=== PATIENT | male | born 1965 | race Caucasian/White ===

== ENCOUNTER 2017-08-19 14:19 | Outpatient (CLI) | payer OTHER | END 2017-08-19 14:20 | disposition home or self-care (01) | LOC: SC 14:19 | PROVIDERS: ATTEND Nurse Practitioner Family | DX: G47.10 Hypersomnia, unspecified (principal); G47.9 Sleep disorder, unspecified; R06.81 Apnea, not elsewhere classified; G47.00 Insomnia, unspecified; R06.83 Snoring | CPT/HCPCS: 99203; 99212 ==

== ENCOUNTER 2017-09-19 20:30 | Outpatient (CLI) | payer OTHER | END 2017-09-19 20:31 | disposition home or self-care (01) | LOC: SC 20:30 | PROVIDERS: ATTEND Internal Medicine Pulmonary Disease | DX: G47.33 Obstructive sleep apnea (adult) (pediatric) (principal); G47.61 Periodic limb movement disorder | CPT/HCPCS: 95810 ==

== ENCOUNTER 2017-10-05 10:58 | Outpatient (CLI) | payer OTHER | END 2017-10-05 10:59 | disposition home or self-care (01) | LOC: SC 10:58 | PROVIDERS: ATTEND Internal Medicine Pulmonary Disease | DX: G47.33 Obstructive sleep apnea (adult) (pediatric) (principal) | CPT/HCPCS: 99212; 99213 ==

== ENCOUNTER 2017-11-16 20:14 | Outpatient (CLI) | payer OTHER | END 2017-11-16 20:15 | disposition home or self-care (01) | LOC: SC 20:14 | PROVIDERS: ATTEND Internal Medicine Pulmonary Disease | DX: G47.33 Obstructive sleep apnea (adult) (pediatric) (principal); G47.61 Periodic limb movement disorder | CPT/HCPCS: 95811 ==

== ENCOUNTER 2017-11-25 14:49 | Outpatient (CLI) | payer OTHER | END 2017-11-25 14:50 | disposition home or self-care (01) | LOC: SC 14:49 | PROVIDERS: ATTEND Nurse Practitioner Family | DX: G47.33 Obstructive sleep apnea (adult) (pediatric) (principal); G47.61 Periodic limb movement disorder | CPT/HCPCS: 99212; 99214 ==

== ENCOUNTER 2017-11-27 12:13 | Emergency (ER) | payer OTHER ==
[2017-11-27 12:26] VITALS: BP 124/98
--- NOTE | 2017-11-27 12:43 | ED Physician Documentation ---
PD HPI URI - Stated complaint Stated Complaint: L EAR PX - Chief complaint Chief Complaint: Heent - History obtained from History obtained from: Patient - History of Present Illness Timing - onset: How many days ago (1-2) Timing duration: Days Timing details: Gradual onset, Still present Associated symptoms: Ear pain (1-2 days), Nasal congestion (for couple of weeks) , Swollen nodes. No: Fever, Chills, Sore throat, Dry cough Contributing factors: No: Sick contact Similar symptoms before: Diagnosis (he has had ear infections in the past, typically 1-2 weeks after URI symptoms or allergies. He did have congestion and cough about 1 1/2 weeks ago, which has improved. Now the ear pain.) Recently seen: Not recently seen Review of Systems Constitutional: denies: Fever, Chills Ears: reports: Loss of hearing (diminished), Ear pain. denies: Tinnitus/ringing Nose: reports: Rhinorrhea / runny nose, Congestion (1 1/2 weeks ago, improved) Throat: denies: Sore throat Respiratory: denies: Cough GI: denies: Nausea, Vomiting, Diarrhea Skin: denies: Rash, Lesions PD PAST MEDICAL HISTORY - Past Medical History Past Medical History: Yes Cardiovascular: Hypertension Respiratory: Sleep apnea, CPAP use Endocrine/Autoimmune: None GI: GERD : None HEENT: None Psych: None Musculoskeletal: None Derm: None - Past Surgical History Past Surgical History: Yes HEENT: Tonsil/Adenoidectomy - Present Medications Home Medications: Ambulatory Orders Medication Instructions Recorded Confirmed Esomeprazole Magnesium [Nexium] 40 mg PO 03/21/16 Lisinopril [Prinivil] 10 mg PO 03/21/16 Multivitamin [Multivitamins] 03/21/16 Amoxicillin 500 mg PO TID #20 capsule 11/27/17 Cetirizine [ZyrTEC] 10 mg PO DAILY #15 tablet 11/27/17 Dexamethasone [Decadron] 4 mg PO DAILY #5 tablet 11/27/17 - Allergies Allergies/Adverse Reactions: Allergies Allergy/AdvReac Type Severity Reaction Status Date / Time No Known Drug Allergies Allergy Verified 11/27/17 12:26 - Social History Does the pt smoke?: No Smoking Status: Never smoker Does the pt drink ETOH?: Yes Does the pt have substance abuse?: No - Immunizations Immunizations are current?: No Immunizations: TDAP >10years/unknown, Other immun current PD ED PE NORMAL - Vitals Vital signs reviewed: Yes - General General: Alert and oriented X 3, No acute distress, Well developed/nourished - HEENT HEENT: Pharynx benign. No: Ears normal (right is good. left TM with redness and fluid behind c/w ear infection. Canal appears okay. ) - Neck Neck: Supple, no meningeal sign, No adenopathy - Cardiac Cardiac: RRR, No murmur - Respiratory Respiratory: Clear bilaterally - Derm Derm: Normal color, Warm and dry, No rash Results - Vitals Vitals: Vital Signs - 24 hr 11/27/17 12:24 Temperature 36.4 C L Heart Rate 74 Respiratory 16 Rate Blood Pressure 124/98 H O2 Saturation 98 Oxygen O2 Source Room air PD MEDICAL DECISION MAKING - ED course Complexity details: considered differential, d/w patient - Sepsis Event Vital Signs: Vital Signs - 24 hr 11/27/17 12:24 Temperature 36.4 C L Heart Rate 74 Respiratory 16 Rate Blood Pressure 124/98 H O2 Saturation 98 Oxygen O2 Source Room air Departure - Departure Disposition: 01 Home, Self Care Clinical Impression: Otitis media Qualifiers: Otitis media type: suppurative Chronicity: acute Laterality: left Recurrence: not specified as recurrent Spontaneous tympanic membrane rupture: without spontaneous rupture Qualified Code(s): H66.002 - Acute suppurative otitis media without spontaneous rupture of ear drum, left ear Condition: Stable Record reviewed to determine appropriate education?: Yes Instructions: ED Otitis Media Acute Adult Follow-Up: NELLA MEDINA [Primary Care Provider] - Prescriptions: Amoxicillin 500 mg PO TID #20 capsule Cetirizine [ZyrTEC] 10 mg PO DAILY #15 tablet Dexamethasone [Decadron] 4 mg PO DAILY #5 tablet Comments: Continue cleansing the nasal passage with saline spray or water. Do this a few times a day. Add amoxicillin 3 times a day for a week for the infection in the ear. Decadron steroid for the inflammation of the eustachian tube to promote better drainage. Do this for several days. Cetirizine antihistamine to decrease the fluid in the middle ear daily for the next week or 2. Recheck if not improving over the next few days. Tylenol or ibuprofen if needed for pains. Discharge Date/Time: 11/27/17 13:02
== END 2017-11-27 13:02 | disposition home or self-care (01) ==
LOC: ED 12:13
DX: H66.002 Acute suppurative otitis media without spontaneous rupture of ear drum, left ear (principal); I10 Essential (primary) hypertension
CPT/HCPCS: 99283

== ENCOUNTER 2018-11-01 | Outpatient (CLI) | payer OTHER | END 2018-11-01 15:30 | disposition home or self-care (01) | DX: G47.33 Obstructive sleep apnea (adult) (pediatric) (principal) | CPT/HCPCS: 99212; 99214 ==

== ENCOUNTER 2020-11-09 11:40 | Outpatient (CLI) | payer OTHER ==
--- NOTE | 2020-11-09 12:01 | SLEEP CARE CONSULTATION ---
Information from patient questionnaire entered by Yuki Weinberg. I have reviewed and concur with the information entered by Yuki Weinberg. This document represents the service I personally performed and the decisions made by , Teresa Cha ARNP. History of Present Illness Service Date and Time: 11/09/2020 1140 Previous diagnosis: Severe, Obstructive Sleep Apnea-Hypopnea Syndrome AHI: 35.7 (in 2018) Reason for follow up: annual (last seen 10/2019) Equipment type: CPAP Equipment obtained from: [facility] (getting supplies when needed) Mask style: Nasal pillows Backup mask available: Yes (old mask) Last cushion change: last month Prior sleep studies: Yes Year and Where: 2018 - [facility] Type of Sleep Study: Polysomnography HPI additional information: BRIAN SOLORZANO was diagnosed to have severe, AHI 35.7, obstructive sleep apnea- hypopnea syndrome and returned today for CPAP therapy annual follow-up. CPAP Compliance Data - Data Reviewed with Patient Average duration of nightly device use: 7 hr 31 sec Compliance rate %: 100 (180 days) Current pressure setting (cmH2O): 7-12 Humidity settin Heated hose settin Average residual AHI: 0.9 Average large leak: 1 sec Subjective Patient concerns: denies: aerophagia, mask discomfort, air blowing in eyes, mask leak noise, condensation in mask/hose, epistaxis, other Observed to snore while using device: No Current pressure setting perceived as: comfortable On therapy, patient: reports: sleeping better, awakening more refreshed, being more awake and alert during the day, more rested overall. denies: drowsiness while driving Initial [place] Sleepiness Scale score: 20 (in 2018) Current [place] Sleepiness Scale score: 19 Allergies and Home Medications Home medication list reviewed: Yes (no changes) Allergy and home medication list: Lisinopril Nexium Review of Systems Review of systems same as previous: Yes (no changes) Physical Exam Heart Rate: 63 O2 Saturation: 98 Height: 5 ft 8.75 in Weight: 264 lb Weight change since last visit: 18 lb loss Body Mass Index: 39.2 BMI Classification: Obese Impression and Plan 1. Obstructive Sleep Apnea-Hypopnea Syndrome, severe, with excellent treatment compliance and excellent apnea control. On CPAP therapy, the patient has better sleep quality and is more rested overall. Brian has lost weight, 18 pounds since last year. He was encouraged to continue his efforts to lose weight. His P[place] is still elevated but he states he is working 7 days a week which contributes to his fatigue. Patient does have a Dreamstation. I discussed with patient that [employer] has a recall on several devices like the patients machine. Patient was encouraged to register their device online with [employer] for the recall to see if their device is affected. If their device is affected they should start a claim. Patient denies any black particles seen in machine or hoses, any unusual odors coming from device. Patient has not experienced any physical symptoms such as upper airway irritation, headache, skin or eye irritation, asthma, nausea/vomiting, difficulty breathing or chest pain. Patient informed that they may use an inline CPAP filter that they can obtain online to reduce chance of any particles being inhaled or ingested. We discussed thor oughly the health risks of not using the CPAP versus continuing use with the filter in place. If patient is not able to sleep due to waking up choking, gasping for air or other respiratory distress that they may decide to continue using it until it is either replaced or repaired. Patient voiced understanding and agreement with plan. Patient's apnea severity and rationale for treatment to reduce apnea, improve sleep quality and reduce cardiovascular and cerebrovascular events was reviewed. I also reviewed the benefit of consistent device use of CPAP for hypertension and gastric reflux. * Continue auto CPAP pressure at 7-12 cmH2O * Patient to register his device for recall with [employer] * Notify me if snoring with mask or feeling that the pressure is too much or too little * Continue to try to lose weight * Call this office if any problems using CPAP * Return for follow up in 1 year, or sooner if concerns arise Counseling Topics: Spare mask, Weight loss health impact Visit Type: In Office Time Spent with Patient (minutes): 16 Provider Statement: I spent 100% of the Face to Face Visit with the patient with greater than 50% spent counseling the patient and coordination of care.
== END 2020-11-09 11:41 | disposition home or self-care (01) ==
LOC: SC 11:40
PROVIDERS: ATTEND Nurse Practitioner Family
DX: G47.33 Obstructive sleep apnea (adult) (pediatric) (principal); E66.9 Obesity, unspecified; Z68.39 Body mass index [BMI] 39.0-39.9, adult
CPT/HCPCS: 99212

== ENCOUNTER 2022-12-09 09:31 | Outpatient (CLI) | payer OTHER ==
--- NOTE | 2022-12-09 10:03 | Sleep Patient Instructions ---
Sleep Center Visit Summary - Patient Visit Information Reason for Visit: Annual Visit for PAP therapy - Patient Instructions Additional Instructions: You will continue with CPAP therapy with pressure set at 7-12 cmH2O. A supply prescription will be updated with your DME. I have added a new device to your prescription. You should be contacted by [facility] about the new CPAP. Please call us to schedule compliance visit. We encourage you to continue to try to lose weight. Please follow up with the sleep care office one month after you obtain your new CPAP. - Clinic Information Contact: [facility] [address] [place] [address] [email or web address] T: [phone]
--- NOTE | 2022-12-09 10:08 | SLEEP CARE CONSULTATION ---
Information from patient questionnaire entered by Ruby Pulido. I have reviewed and concur with the information entered by Ruby Pulido. This document represents the service I personally performed and the decisions made by , Teresa Cha ARNP. History of Present Illness Service Date and Time: 12/09/2022 09 Previous diagnosis: Severe, Obstructive Sleep Apnea-Hypopnea Syndrome AHI: 35.7 (in 2018) Reason for follow up: annual (LAST SEEN 10/2021) Equipment type: CPAP (DREAMSTATION 2) Equipment obtained from: Other ([facility]; getting supplies) Mask style: Nasal pillows Backup mask available: Yes (old mask) Last cushion change: last week Prior sleep studies: Yes Year and Where: 2017 - [facility] Type of Sleep Study: Polysomnography HPI additional information: BRIAN SOLORZANO was diagnosed to have severe, AHI 35.7, obstructive sleep apnea- hypopnea syndrome and returned today for CPAP therapy annual follow-up. Sleep Study - Results Type of Sleep Study: Polysomnography Prior sleep studies: Yes Year and Where: 2017 - [facility] CPAP Compliance Data - Data Reviewed with Patient Average duration of nightly device use: 7 HRS 10 MINS 42 SECS Compliance rate %: 100 (06/06/22-12/02/22; 180/180 days used) Current pressure setting (cmH2O): 7-12 Average residual AHI: 1.3 Central apnea: 0.1 Obstructive apnea: 0.6 Hypopnea: 0.6 Average large leak: 0 secs Subjective Patient concerns: reports: other (nozzle damage from fall). denies: aerophagia, mask discomfort, air blowing in eyes, mask leak noise, condensation in mask/hose, nasal congestion, dry mouth, nose, throat Observed to snore while using device: No Current pressure setting perceived as: comfortable On therapy, patient: reports: sleeping better, awakening more refreshed, being more awake and alert during the day, more rested overall. denies: drowsiness while driving Initial [place] Sleepiness Scale score: 20 (in 2018) Current [place] Sleepiness Scale score: 17 (12/09/22) Allergies and Home Medications Known drug allergies: No Drug allergies reviewed: Yes Home medication list reviewed: Yes (no changes) Allergy and home medication list: Allergies No Known Drug Allergies Allergy (Verified 12/08/22 08:43) Home Medications Medication Instructions Recorded Confirmed Last Taken Type Esomeprazole Magnesium [Nexium] See Rx Instructions .ROUTE .COMPLEX 03/21/16 12/09/22 03/20/16 History Multivitamin [Multivitamins] See Rx Instructions .ROUTE .COMPLEX 03/21/16 12/09/22 03/20/16 History lisinopriL [Prinivil] See Rx Instructions .ROUTE .COMPLEX 03/21/16 12/09/22 03/20/16 History Review of Systems Review of systems same as previous: Yes (no changes) Physical Exam Vital signs obtained and entered by: RUBY Fowler MA Blood Pressure: 136/85 (RIGHT) Cuff size: wrist Heart Rate: 74 O2 Saturation: 96 Height: 5 ft 8.75 in Weight: 280 lb Body Mass Index: 41.6 BMI Classification: Morbidly Obese Impression and Plan 1. Obstructive Sleep Apnea-Hypopnea Syndrome, severe, with good treatment compli ance and good apnea control. On CPAP therapy, the patient has better sleep quality and is more rested overall. Patient last updated his device in 09/2017. He would like to try to obtain a new device. He recently dropped his machine and so far it is working okay but part of the hose nozzle is chipped now. Thus, the CPAP will be updated. A DWO prescription will be made. Compliance guidelines for new device and follow up discussed. Patient's apnea severity and rationale for treatment to reduce apnea, improve sleep quality and reduce cardiovascular and cerebrovascular events was reviewed. I also reviewed the benefit of consistent device use of CPAP for hypertension and gastric reflux. 2. Obesity, unspecified. Currently patients BMI is 41.6. Obesity increases the risk of apnea, CPAP pressure requirements and overall health risks especially cardiovascular and diabetes. Thus patient is advised to lose weight. * Continue auto CPAP pressure at 7-12 cmH2O * Update machine * Update supplies * Notify me if snoring with mask or feeling that the pressure is too much or too little * Attempt to lose weight * Call this office if any problems using CPAP * Return for follow up one month after obtaining new device, or sooner if concerns arise Counseling Topics: Spare mask, Weight loss health impact Visit Type: In Office Time Spent with Patient (minutes): 24 Provider Statement: I spent 100% of the Face to Face Visit with the patient with greater than 50% spent counseling the patient and coordination of care.
[2022-12-09 10:09] VITALS: BP 136/85; O2SAT 96
== END 2022-12-09 09:32 | disposition home or self-care (01) ==
LOC: SC 09:31
PROVIDERS: ATTEND Nurse Practitioner Family
DX: G47.33 Obstructive sleep apnea (adult) (pediatric) (principal); E66.01 Morbid (severe) obesity due to excess calories; Z68.41 Body mass index [BMI] 40.0-44.9, adult
CPT/HCPCS: 99212; 99213